=== PATIENT | male | born 1980 | race Caucasian/White ===

== ENCOUNTER → 2018-03-14 | Outpatient (CLI) | payer BC ==
[~2018-03-14] MED LIST: FLU60VIA41 IM
[2018-03-14 12:03] LABS: PLATELET COUNT, AUTOMATED 189 K/uL (150-450)
--- NOTE | 2018-03-14 12:48 | EKG ---
FACILITY: [facility] - [place] PATIENT NAME: PAO GARRISON : [id number] MR: [id number] V: [id number] EXAM DATE: ORDERING PHYSICIAN: JENNY CASTRO TECHNOLOGIST: LUCIE Test Reason : SOB Blood Pressure : / mmHG Vent. Rate : 062 BPM Atrial Rate : 062 BPM P-R Int : 134 ms QRS Dur : 102 ms QT Int : 412 ms P-R-T Axes : 043 022 032 degrees QTc Int : 418 ms Normal sinus rhythm with sinus arrhythmia Normal ECG No previous ECGs available Confirmed by JENNY CASTRO ([id number]) on 03/15/2018 9:10:54 AM Referred By: PHILIPP Confirmed By:JENNY CASTRO
[2018-03-14 13:01] LABS: LDL CHOLESTEROL 63 mg/dl
== END ==
LOC: RESP 11:08
PROVIDERS: ATTEND Internal Medicine
DX: R07.9 Chest pain, unspecified (principal); R06.00 Dyspnea, unspecified; R53.83 Other fatigue; G47.33 Obstructive sleep apnea (adult) (pediatric); E66.9 Obesity, unspecified; Z98.84 Bariatric surgery status
CPT/HCPCS: 36415; 81001; 82040; 82247; 82306; 82310; 82374; 82435; 82465; 82565; 82607; 82728; 82746; 82947; 83540; 83550; 83718; 84075; 84132; 84155; 84295; 84443; 84450; 84460; 84478; 84520; 85025; 85379

== ENCOUNTER → 2018-04-06 | Outpatient (CLI) | payer BC ==
[~2018-04-06] MED LIST changes: +CIPR-214 PO
== END ==
LOC: LAB 11:22
PROVIDERS: ATTEND Urology
DX: Z30.2 Encounter for sterilization (principal)
CPT/HCPCS: 88302

== ENCOUNTER → 2018-05-25 | Outpatient (CLI) | payer BC | LOC: RESP 19:56 | PROVIDERS: ATTEND Internal Medicine | DX: G47.33 Obstructive sleep apnea (adult) (pediatric) (principal) ==

== ENCOUNTER → 2018-07-06 | Outpatient (CLI) | payer BC | LOC: RESP 20:58 | PROVIDERS: ATTEND Internal Medicine | DX: G47.33 Obstructive sleep apnea (adult) (pediatric) (principal); G47.36 Sleep related hypoventilation in conditions classified elsewhere ==

== ENCOUNTER 2018-09-12 03:11 | Emergency (ER) | payer BC ==
--- NOTE | 2018-09-12 03:15 | ER Report ---
History and Physical Time Seen By MD: 03:13 HPI/ROS CHIEF COMPLAINT: Left hand injury HISTORY OF PRESENT ILLNESS: 38-year-old male presents ambulatory to the ER with pain in his long and ring finger. There is a subungual hematoma of the long finger involving the entire nail. The distal fingertip is grossly swollen. There is some injury to the distal tip of the ring finger. Patient is unable to recall exactly how he injured it. Patient's right-hand dominant. He shows good range of motion. He is unable to completely flex the long finger all the way into a complete fist at the last joint. Patient denies any other injuries. Allergies: Coded Allergies: No Known Drug Allergies (Unverified , 09/12/18) Home Meds Active Scripts Hydrocodone Bit/Acetaminophen (HYDROCODON-ACETAMINOPHEN 5-325) 1 Each Tablet, 1 EACH PO Q4-6H PRN for PAIN, #10 TAKE ONE TABLET BY MOUTH EVERY 4-6 HOURS NEEDED FOR PAIN Prov:NELY EDMONDS DO 09/12/18 Reviewed Nurses Notes: Yes Old Medical Records Reviewed: Yes Smoking Status: Current: Some Days Smoker Constitutional Vital Sign - Last 24 Hours 09/12/18 03:15 Temp 97.9 Pulse 79 Resp 14 B/P (MAP) 147/106 Pulse Ox 92 O2 Delivery Room Air Physical Exam General appearance: Alert no distress. Respiratory: Chest is non tender, lungs are clear to auscultation. Cardiac: Regular rate and rhythm Extremities: Examination of the left hand reveals soft tissue swelling of the long finger and there is a large supple. Unable hematoma involving the entire nail. The ring finger appears reddened and swollen. Just are neurovascularly intact. DIFFERENTIAL DIAGNOSIS: After history and physical exam differential diagnosis w as considered for sprain, strain, fracture, dislocation, contusion, Phalen, subungual hematoma Medical Decision Making EKG/Imaging Imaging X-ray: Left hand, 3 views was obtained. I viewed the images myself on the PACS system. My interpretation of the images is: Fracture distal tuft of long finger. The radiologist interpretation had no clinically significant variation from this interpretation. ED Course/Re-evaluation ED Course Patient was admitted to an examination room. H&P was done. The differential diagnoses was considered. Patient with obvious gross alcohol intoxication does not recall the event. He smashed his fingers likely in a door. He has a large subungual hematoma and gross swelling to the distal tip of the long finger. There is some injury to the ring finger. Patient's diagnostic x-rays show a distal tuft fracture. A digital block is performed of the left long finger. Trephination was performed with ophthalmic cautery.. He was placed in a birdcage splint.. Patient will be given pain medication to fill in the morning when he is sober. Decision to Disposition Date: Sep 12, 2018 Decision to Disposition Time: 03:33 Depart Departure Latest Vital Signs Vital Signs Date Time Temp Pulse Resp B/P (MAP) Pulse Ox O2 Delivery O2 Flow Rate FiO2 09/12/18 03:15 97.9 79 14 147/106 92 Room Air Impression: Primary Impression: Closed fracture of tuft of distal phalanx of finger Additional Impression: Subungual hematoma of finger of left hand Condition: Improved Disposition: HOME OR SELF-CARE Referrals: JENNY CASTRO MD (PCP) Patient Instructions: Finger Fracture (ED), Subungual Hematoma (ED) Additional Instructions: Wear splint to protect your fingertip for 3 weeks Keep your finger elevated Take ibuprofen 200 mg 3 tablets 3 times a day with food Apply ice to the affected finger Follow-up with primary care if unimproved in 5-7 days. Problem Qualifiers Additional Impression: Subungual hematoma of finger of left hand Encounter type: initial encounter Qualified Codes: S60.10XA - Contusion of unspecified finger with damage to nail, initial encounter NELY EDMONDS DO Sep 12, 2018 03:15
[2018-09-12] MEDS ORDERED: LOR5/325 PO (03:38)
--- NOTE | 2018-09-12 04:11 | RADIOLOGY IMAGING REPORT ---
[place] [facility] [place]: Eyal Aviles : 1980 MR: [id number] V: [id number] EXAM DATE: ORDERING PHYSICIAN: NELY EDMONDS TECHNOLOGIST: Location: [facility] - [place] Patient: Eyal Aviles : 1980 Visit/Account:[id number] Date of Sevice: 09/12/2018 INDICATION: Crushed left long and ring finger tips. EXAM DATE: 09/12/2018 3:15 AM COMPARISON: None. FINDINGS: 3 views left hand. Mineralization is normal. Nondisplaced fracture of the long finger distal phalanx tuft. Mild surrounding soft tissue swelling. No additional acute fracture or dislocation. IMPRESSION: Nondisplaced fracture of the left lung finger distal phalanx tuft. Report Dictated By: Erick Jameson MD at 09/12/2018 4:04 AM Report E-Signed By: Erick Jameson MD at 09/12/2018 4:06 AM WSN:[id number]
[2018-09-12 04:28] VITALS: BP 134/86
== END 2018-09-12 04:19 | disposition home or self-care (01) ==
LOC: ER 03:25
DX: S62.663A Nondisplaced fracture of distal phalanx of left middle finger, initial encounter for closed fracture (principal); S60.10XA Contusion of unspecified finger with damage to nail, initial encounter
CPT/HCPCS: 99283